=== PATIENT | male | born 1990 | race Caucasian/White ===

== ENCOUNTER 2017-10-27 15:08 | Emergency (ER) | payer BC, OTHER ==
[2017-10-27 16:08] VITALS: BP 134/78
[2017-10-27] MEDS ORDERED: Tetracaine 0.5% OPTH.SOL 4 ML* 1 DROP BTL ONE (16:15)
[2017-10-27] MEDS ORDERED: BSS OPTH.SOL* BTL ONE (16:15)
[2017-10-27] MEDS ORDERED: Fluorescein Sod TOPICAL 0.6* 0.6 MG TEST OPHTHALMIC ONE (16:15)
--- NOTE | 2017-10-27 17:40 | UC ---
Eye Complaint HPI - HPI Summary HPI Summary: 2 days ago patient got a FB in his left eye while using a grinding wheel. Patient is here today due to continued FB sensation, erythema of eye and discomfort - History of Current Complaint Chief Complaint: UCEye Stated Complaint: RIGHT EYE COMPLAINT Time Seen by Provider: 10/27/17 17:34 Hx Obtained From: Patient Onset/Duration: Sudden Onset, Lasting Days - 2 Timing: Constant Pain Intensity: 4 Pain Scale Used: 0-10 Numeric Location of Injury: Other Character: Foreign Body Sensation Aggravating Factor(s): Nothing Alleviating Factor(s): Nothing Associated Signs And Symptoms: Positive: Drainage (Clear), Vision Impairment Right - Allergies/Home Medications Allergies/Adverse Reactions: Allergies Allergy/AdvReac Type Severity Reaction Status Date / Time No Known Allergies Allergy Verified 10/27/17 16:03 Home Medications: Home Medications NK [No Home Medications Reported] 10/27/17 [History Confirmed 10/27/17] PMH/Surg Hx/FS Hx/Imm Hx Previously Healthy: Yes - Surgical History Surgical History: None - Family History Known Family History: Positive: Unknown - Social History Occupation: Employed Full-time Lives: With Family Alcohol Use: Occasionally Substance Use Type: None Smoking Status (MU): Heavy Every Day Tobacco Smoker Type: Cigarettes Amount Used/How Often: 3/4 PPD Length of Time of Smoking/Using Tobacco: Since Age 17 Household Exposure Type: Cigarettes - Immunization History Most Recent Tetanus Shot: "don't know ... a long time ago" Vaccination Up to Date: No Review of Systems Constitutional: Negative Skin: Negative Eyes: Blurred Vision, Eye Redness - right ENT: Negative Respiratory: Negative Cardiovascular: Negative Gastrointestinal: Negative Genitourinary: Negative Motor: Negative Neurovascular: Negative Musculoskeletal: Negative Neurological: Negative Psychological: Negative Is Patient Immunocompromised?: No All Other Systems Reviewed And Are Negative: Yes Physical Exam Triage Information Reviewed: Yes Appearance: Well-Appearing, Well-Nourished, Pain Distress - mild Vital Signs: Initial Vital Signs Temp 98.3 F 10/27/17 16:02 Pulse 100 10/27/17 16:02 Resp 16 10/27/17 16:02 BP 134/78 10/27/17 16:02 Pulse Ox 100 10/27/17 16:02 Vital Signs Reviewed: Yes Eye Exam: Other Eyes: Positive: Conjunctiva Inflamed - od, Discharge - OD ENT Exam: Normal ENT: Positive: Normal ENT inspection, Hearing grossly normal. Negative: Trismus , Muffled voice, Hoarse voice Dental Exam: Normal Neck exam: Normal Neck: Positive: Supple, Nontender Respiratory Exam: Normal Respiratory: Positive: No respiratory distress, No accessory muscle use Cardiovascular Exam: Normal Cardiovascular: Positive: RRR, Pulses Normal, Brisk Capillary Refill Musculoskeletal Exam: Normal Musculoskeletal: Positive: Strength Intact, ROM Intact, No Edema Neurological Exam: Normal Neurological: Positive: Alert, Muscle Tone Normal, Fatigued Psychological Exam: Normal Skin Exam: Normal Eye Complaint Course/Dx - Course Course Of Treatment: I am unable to remove FB Rust ring Present Spoke to ED MD at [facility] who accepted patient. will up date tetanus - Differential Dx/Diagnosis Provider Diagnoses: FB with rust ring right eye, update tetanus, nivcotine dependant Discharge - Sign-Out/Discharge Documenting (check all that apply): Discharge/Admit/Transfer - Discharge Plan Condition: Stable Disposition: HOME Patient Education Materials: Eye Foreign Body (ED) Referrals: No Primary Care Phys,NOPCP [Primary Care Provider] - Additional Instructions: Please go directly over to the emergency room at [facility]. They have the capability to remove the piece of metal from your I that I do not. We did update your tetanus vaccine for you today - Billing Disposition and Condition Condition: STABLE Disposition: HOME
[2017-10-27] MEDS ORDERED: Tetan/Diph/Pertus SYR(Tdap)* 0.5 ML SYR(BOOSTRIX) use SYR IM ONE (17:47)
== END 2017-10-27 17:58 | disposition home or self-care (01) ==
LOC: UCCORT 15:08
DX: T15.91XA Foreign body on external eye, part unspecified, right eye, initial encounter (principal); X58.XXXA Exposure to other specified factors, initial encounter; Y93.9 Activity, unspecified; Y92.9 Unspecified place or not applicable; Z23 Encounter for immunization; F17.210 Nicotine dependence, cigarettes, uncomplicated
CPT/HCPCS: 90471; 90715; 99202; A9270-GY; G0463